=== PATIENT | male | born 1950 ===

== ENCOUNTER 2025-01-19 07:45 | Inpatient (IN) | payer OTHER ==
[~2025-01-19] VITALS: Ht 170.2 cm; Wt 89.4 kg
[2025-01-19] MEDS ORDERED: UROXATRAL10 MG (08:49)
[2025-01-19 08:54] VITALS: BP 135/78
[2025-01-19 09:07] LABS: INR 0.95; PARTIAL THROMBOPLASTIN TIME 27.6 SECONDS (22.0-34.0); PROTHROMBIN TIME 10.4 SECONDS (9.0-11.5)
[2025-01-19 10:57] LABS: RH POSITIVE
[2025-01-21] MEDS ORDERED: CEFAZOLIN SODIUM 1,000 MG VIAL ONE (07:15)
[2025-01-21] MEDS ORDERED: ENOXAPARIN SODIUM 40 MG/0.4 ML SYRINGE SUBCUTANEO ONE ×2 (07:16→08:45)
[2025-01-21] MEDS ORDERED: CHLORHEXIDINE GLUCONATE 120 ML BOTTLE TOP ONE ×2 (08:16→08:45)
[2025-01-21] MEDS ORDERED: CEFAZOLIN SODIUM 1,000 MG VIAL IV ONE (08:45)
[2025-01-21] MEDS ORDERED: SUGAMMADEX SODIUM 200 MG/2 ML VIAL IV ONE (12:37)
[2025-01-21] MEDS ORDERED: DEXTROSE 5 %-0.45 % SOD CHLORD 1,000 ML IV SCH ×2 (13:09→23:00)
[2025-01-21] MEDS ORDERED: ONDANSETRON HCL 2 MG/ML VIAL IV PRN (13:15)
[2025-01-21] MEDS ORDERED: MORPHINE SULFATE 4 MG/ML VIAL IV ONE ×2 (13:15→13:45)
[2025-01-21] MEDS ORDERED: MORPHINE SULFATE 2 MG/ML CARTRIDGE IV PRN (13:15)
[2025-01-21 16:00] VITALS: BP 101/66; O2SAT 18
[2025-01-21] MEDS ORDERED: CEFAZOLIN SODIUM 1,000 MG VIAL IV SCH (17:00)
[2025-01-21] MEDS ORDERED: SIMETHICONE 125 MG CAPSULE PO SCH (17:00)
[2025-01-21] MEDS ORDERED: DOCUSATE SODIUM 100MG CAP PO SCH (17:00)
[2025-01-21] MEDS ORDERED: FAMOtidine 20 MG TABLET PO SCH (17:00)
[2025-01-22 00:36] VITALS: BP 104/59; O2SAT 100
[2025-01-22 07:34] LABS: HEMATOCRIT 31.5 % (39.0-48.0); HEMOGLOBIN 10.7 g/dL (13-16.00); MEAN CORPUSCULAR HEMOGLOBIN 32.4 pg (27.00-32.0); MEAN CORPUSCULAR HGB CONC 34.1 g/dl (32.0-36.0); PLATELET COUNT 182 K/uL (150-450); RED BLOOD COUNT 3.32 M/uL (4.00-6.00); RED CELL DISTRIBUTION WIDTH 13.6 % (11.5-14.5)
[2025-01-22 08:00] VITALS: BP 106/68; O2SAT 100
[2025-01-22 08:20] LABS: CALCIUM 8.7 mg/dL (8.5-10.1); CREATININE SERUM 0.94 mg/dL (0.70-1.30); GFR 78.89; POTASSIUM 5.03 mEq/L (3.5-5.1)
[2025-01-22] MEDS ORDERED: ACETAMINOPHEN 500 MG GEL..CAP PO PRN (16:15)
[2025-01-22 16:22] VITALS: BP 111/68; O2SAT 96
[2025-01-22 20:00] VITALS: BP 104/58; O2SAT 99
[2025-01-23 00:23] VITALS: BP 94/56; O2SAT 99
[2025-01-23 09:04] VITALS: BP 104/61; O2SAT 95
== END 2025-01-23 14:44 | disposition home or self-care (01) | DRG 708 ==
LOC: O/R 01-21 05:33 → SURH 01-21 05:33
PROVIDERS: ADMIT Urology; ATTEND Urology
PROC: 0TBB0ZX Excision of Bladder, Open Approach, Diagnostic (ICD-10-PCS; 2025-01-21)
PROC: 07BC0ZZ Excision of Pelvis Lymphatic, Open Approach (ICD-10-PCS; 2025-01-21)
PROC: 0VT00ZZ Resection of Prostate, Open Approach (ICD-10-PCS; principal; 2025-01-21 07:00)
DX: C61 Malignant neoplasm of prostate (principal); R59.0 Localized enlarged lymph nodes